=== PATIENT | male | born 2000 | race Caucasian/White ===

== ENCOUNTER → 2019-01-07 | Outpatient (CLI) | payer OTHER ==
--- NOTE | 2019-01-07 16:12 | MR ---
EXAMINATION TYPE: MR lumbar spine wo con DATE OF EXAM: 01/07/2019 COMPARISON: NONE HISTORY: Rt side pain into rt leg and foot per patient. Low back pain and right-sided sciatica. TECHNIQUE: Multiplanar, multisequence imaging of the lumbar spine is performed without IV contrast. FINDINGS: Sagittal images of the lumbar spine show vertebral body heights and alignment to appear sat isfactory. There is disc desiccation with mild to moderate disc space L5-S1 level otherwise the inter vertebral discs demonstrate normal heights and hydration. The conus medullaris is somewhat high in p osition ending mid T12 level without abnormal signal or clumping of lumbosacral nerve roots. The bon e marrow signal intensity is within normal limits. No significant spurring is seen. Axial images show the T12-L1, L1-L2, L2-L3, L3-L4, L4-L5 levels all to appear within normal limits. Axial images at the L5-S1 level shows central disc protrusion and the spinal canal is preserved as ar e some increased prominence of the anterior epidural fat. Bilateral neural foramina are patent. Paraspinal muscle bulk is maintained. No suspicious incidental retroperitoneal findings are seen. IMPRESSION: Mild degenerative changes L5-S1 level. No suspicious focal disc herniation to account for patient's right-sided radiculopathy type symptoms.
== END | disposition home or self-care (01) ==
LOC: RADMRIMAIN 15:04
PROVIDERS: ATTEND Family Medicine
DX: M54.5 Low back pain (principal)
CPT/HCPCS: 72148

== ENCOUNTER 2019-04-03 23:04 | Emergency (ER) | payer OTHER ==
[2019-04-03 23:13] VITALS: TEMP 97.3
[2019-04-04 00:05] LABS: Appearance,Urine Clear (Clear); Bacteria,Urine Rare /hpf; Bilirubin,Urine Negative (Negative); Blood,Urine Trace (Negative); Color,Urine Yellow; Glucose,Urine (UA) Negative (Negative); Ketones,Urine Negative (Negative); Leukocyte Esterase,Urine Negative (Negative); Mucus,Urine Rare /hpf; Nitrite,Urine Negative (Negative); Protein,Urine Negative (Negative); RBC,Urine 24 /hpf (0-5); Specific Gravity,Urine 1.027 (1.001-1.035); Squamous Epithelial Cell,Urine <1 /hpf (0-4); Urobilinogen,Urine <2.0 mg/dL (<2.0); WBC,Urine 2 /hpf (0-5)
[2019-04-04 00:06] LABS: Basophils # (A) 0.1 k/uL (0-0.2); Basophils % (A) 1 %; Eosinophils # (A) 0.2 k/uL (0-0.7); Eosinophils % (A) 3 %; HCT 43.9 % (39.0-53.0); HGB 15.1 gm/dL (13.0-17.5); Lymphocytes # (A) 2.5 k/uL (1.0-4.8); Lymphocytes % (A) 44 %; MCH 29.8 pg (25.0-35.0); MCHC 34.4 g/dL (31.0-37.0); MCV 86.6 fL (80.0-100.0); Monocytes # (A) 0.5 k/uL (0-1.0); Monocytes % (A) 9 %; Neutrophils # (A) 2.2 k/uL (1.3-7.7); Neutrophils % (A) 40 %; Platelet Count 288 k/uL (150-450); RBC 5.07 m/uL (4.30-5.90); RDW 13.1 % (11.5-15.5); WBC 5.6 k/uL (4.0-11.0)
--- NOTE | 2019-04-04 00:09 | ED ---
General Adult HPI - General Chief complaint: Syncope Stated complaint: Syncope Time Seen by Provider: 04/03/19 23:24 Source: patient Mode of arrival: ambulatory Limitations: no limitations - History of Present Illness Initial comments: Alfredo is a 19-year-old male with no packs medical history is brought to the ER today by his brother, brother states that he was at home and the patient was at work when he was called by the patient's coworkers and told that he was sitting in a chair at work and was difficult to wake up. Brother went to his work was able to wake the patient up he ambulated independently the car, brother reports he seems much more sleepy than usual. Patient was able to ambulate independently and in the emergency department and then into the restroom. Patient was found to be sleeping sitting up on the toilet and are emergency department and admitted that he had been using meth earlier in the day but he didn't want to say that in front of his brother. Patient states he just feels tired denies any acute complaints. - Related Data Allergies Allergy/AdvReac Type Severity Reaction Status Date / Time timex Allergy Unknown Uncoded 04/03/19 23:14 Review of Systems ROS Statement: Those systems with pertinent positive or pertinent negative responses have been documented in the HPI. ROS Other: All systems not noted in ROS Statement are negative. Past Medical History Past Medical History: No Reported History History of Any Multi-Drug Resistant Organisms: None Reported Past Surgical History: No Surgical Hx Reported Past Psychological History: No Psychological Hx Reported Smoking Status: Current every day smoker Past Alcohol Use History: None Reported Past Drug Use History: None Reported General Exam - General Exam Comments Initial Comments: Physical Exam GENERAL: Patient is well-developed and well-nourished. Patient is nontoxic and well- hydrated and is in no distress. HENT: Normocephalic, Atraumatic. EYES: PERRL, EOMI PULMONARY: Unlabored respirations. No audible rales rhonchi or wheezing was noted. CARDIOVASCULAR: There is a regular rate and rhythm without any murmurs gallops or rubs. ABDOMEN: Soft and nontender with normal bowel sounds. SKIN: Skin is clear with no lesions or rashes and otherwise unremarkable. : Deferred NEUROLOGIC: Patient is alert and oriented x3. Moving all extremities spontaneously MUSCULOSKELETAL: Normal extremities with adequate strength and full range of motion. No lower extremity swelling or edema. No calf tenderness. PSYCHIATRIC: Normal psychiatric evaluation. Limitations: no limitations Course Vital Signs 04/03/19 04/04/19 04/04/19 23:11 00:30 01:16 Temperature 97.3 F L Pulse Rate 57 L 56 L 58 L Respiratory 20 18 18 Rate Blood Pressure 117/75 113/64 108/64 O2 Sat by Pulse 100 98 100 Oximetry EKG Findings - EKG Comments: EKG Findings:: EKG was obtained due to triage complaint of syncope, EKG was obtained at 2346, EKG with a rate of 52 rhythm is narrow complex regular rhythm with P waves before each QRS consistent with sinus bradycardia. Normal axis, normal intervals, MT 150, care is 96, QTC is 416. There are no acute ST elevations or depressions there is no evidence of acute ischemia, infarction or arrhythmia. Medical Decision Making - Medical Decision Making The patient was seen and evaluated, history is obtained from the patient did admit and privately he been smoking meth recently but doesn't want his family to know. Patient cannot recall the last time he slept prior to today. Patient is sleeping but arouses is able to hold a conversation and walk around the department. Labs are unremarkable. Urine drug screen positive for methamphetamines and marijuana consistent with the history the patient reported. On reevaluation patient continues to sleep but wakes to voice was able to walk around the department with his mom, he was somewhat agitated by being woken up but is cooperative. Mom is comfortable taking him home at this time. I suspect the patient's sleepiness is secondary to lack of sleep secondary to met hamphetamine abuse. - Lab Data Result diagrams: 04/03/19 23:53 04/03/19 23:53 Lab Results 04/03/19 04/03/19 04/03/19 Range/Units 23:53 23:53 23:53 WBC 5.6 (4.0-11.0) k/uL RBC 5.07 (4.30-5.90) m/uL Hgb 15.1 (13.0-17.5) gm/dL Hct 43.9 (39.0-53.0) % MCV 86.6 (80.0-100.0) fL MCH 29.8 (25.0-35.0) pg MCHC 34.4 (31.0-37.0) g/dL RDW 13.1 (11.5-15.5) % Plt Count 288 (150-450) k/uL Neutrophils % 40 % Lymphocytes % 44 % Monocytes % 9 % Eosinophils % 3 % Basophils % 1 % Neutrophils # 2.2 (1.3-7.7) k/uL Lymphocytes # 2.5 (1.0-4.8) k/uL Monocytes # 0.5 (0-1.0) k/uL Eosinophils # 0.2 (0-0.7) k/uL Basophils # 0.1 (0-0.2) k/uL Sodium 142 (137-145) mmol/L Potassium 4.4 (3.5-5.1) mmol/L Chloride 109 H (98-107) mmol/L Carbon Dioxide 23 (22-30) mmol/L Anion Gap 10 mmol/L BUN 25 H (9-20) mg/dL Creatinine 0.85 (0.66-1.25) mg/dL Est GFR (CKD-EPI)AfAm >90 (>60 ml/min/1.73 sqM) Est GFR (CKD-EPI)NonAf >90 (>60 ml/min/1.73 sqM) Glucose 97 (74-99) mg/dL Calcium 9.8 (8.4-10.2) mg/dL Total Bilirubin 0.8 (0.2-1.3) mg/dL AST 33 (17-59) U/L ALT 34 (4-49) U/L Alkaline Phosphatase 81 (38-126) U/L Total Protein 7.1 (6.3-8.2) g/dL Albumin 4.4 (3.5-5.0) g/dL Urine Color Yellow Urine Appearance Clear (Clear) Urine pH 6.0 (5.0-8.0) Ur Specific [place] 1.027 (1.001-1.035) Urine Protein Negative (Negative) Urine Glucose (UA) Negative (Negative) Urine Ketones Negative (Negative) Urine Blood Trace H (Negative) Urine Nitrite Negative (Negative) Urine Bilirubin Negative (Negative) Urine Urobilinogen <2.0 (<2.0) mg/dL Ur Leukocyte Esterase Negative (Negative) Urine RBC 24 H (0-5) /hpf Urine WBC 2 (0-5) /hpf Ur Squamous Epith Cells <1 (0-4) /hpf Urine Bacteria Rare H (None) /hpf Urine Mucus Rare H (None) /hpf Urine Opiates Screen (NotDetected) Ur Oxycodone Screen (NotDetected) Urine Methadone Screen (NotDetected) Ur Propoxyphene Screen (NotDetected) Ur Barbiturates Screen (NotDetected) U Tricyclic Antidepress (NotDetected) Ur Phencyclidine Scrn (NotDetected) Ur Amphetamines Screen (NotDetected) U Methamphetamines Scrn (NotDetected) U Benzodiazepines Scrn (NotDetected) Urine Cocaine Screen (NotDetected) U Marijuana (THC) Screen (NotDetected) 04/03/19 Range/Units 23:53 WBC (4.0-11.0) k/uL RBC (4.30-5.90) m/uL Hgb (13.0-17.5) gm/dL Hct (39.0-53.0) % MCV (80.0-100.0) fL MCH (25.0-35.0) pg MCHC (31.0-37.0) g/dL RDW (11.5-15.5) % Plt Count (150-450) k/uL Neutrophils % % Lymphocytes % % Monocytes % % Eosinophils % % Basophils % % Neutrophils # (1.3-7.7) k/uL Lymphocytes # (1.0-4.8) k/uL Monocytes # (0-1.0) k/uL Eosinophils # (0-0.7) k/uL Basophils # (0-0.2) k/uL Sodium (137-145) mmol/L Potassium (3.5-5.1) mmol/L Chloride (98-107) mmol/L Carbon Dioxide (22-30) mmol/L Anion Gap mmol/L BUN (9-20) mg/dL Creatinine (0.66-1.25) mg/dL Est GFR (CKD-EPI)AfAm (>60 ml/min/1.73 sqM) Est GFR (CKD-EPI)NonAf (>60 ml/min/1.73 sqM) Glucose (74-99) mg/dL Calcium (8.4-10.2) mg/dL Total Bilirubin (0.2-1.3) mg/dL AST (17-59) U/L ALT (4-49) U/L Alkaline Phosphatase (38-126) U/L Total Protein (6.3-8.2) g/dL Albumin (3.5-5.0) g/dL Urine Color Urine Appearance (Clear) Urine pH (5.0-8.0) Ur Specific [place] (1.001-1.035) Urine Protein (Negative) Urine Glucose (UA) (Negative) Urine Ketones (Negative) Urine Blood (Negative) Urine Nitrite (Negative) Urine Bilirubin (Negative) Urine Urobilinogen (<2.0) mg/dL Ur Leukocyte Esterase (Negative) Urine RBC (0-5) /hpf Urine WBC (0-5) /hpf Ur Squamous Epith Cells (0-4) /hpf Urine Bacteria (None) /hpf Urine Mucus (None) /hpf Urine Opiates Screen Not Detected (NotDetected) Ur Oxycodone Screen Not Detected (NotDetected) Urine Methadone Screen Not Detected (NotDetected) Ur Propoxyphene Screen Not Detected (NotDetected) Ur Barbiturates Screen Not Detected (NotDetected) U Tricyclic Antidepress Not Detected (NotDetected) Ur Phencyclidine Scrn Not Detected (NotDetected) Ur Amphetamines Screen Detected H (NotDetected) U Methamphetamines Scrn Not Detected (NotDetected) U Benzodiazepines Scrn Not Detected (NotDetected) Urine Cocaine Screen Not Detected (NotDetected) U Marijuana (THC) Screen Detected H (NotDetected) Disposition Clinical Impression: Methamphetamine abuse, Fatigue Disposition: HOME SELF-CARE Condition: Stable Is patient prescribed a controlled substance at d/c from ED?: No Referrals: Rashard Arango Jr, DO [Primary Care Provider] - 1-2 days
[2019-04-04 00:11] LABS: ALT 34 U/L (4-49); AST 33 U/L (17-59); African American GFR (CKD) >90 (>60 ml/min/1.73 sqM); Albumin 4.4 g/dL (3.5-5.0); Alkaline Phosphatase 81 U/L (38-126); Anion Gap 10 mmol/L; Blood Urea Nitrogen 25 mg/dL (9-20); Calcium 9.8 mg/dL (8.4-10.2); Carbon Dioxide 23 mmol/L (22-30); Chloride 109 mmol/L (98-107); Glucose 97 mg/dL (74-99); Non-African American GFR(CKD) >90 (>60 ml/min/1.73 sqM); Potassium 4.4 mmol/L (3.5-5.1); Sodium 142 mmol/L (137-145); Total Bilirubin 0.8 mg/dL (0.2-1.3); Total Protein 7.1 g/dL (6.3-8.2)
[2019-04-04 00:15] LABS: Amphetamine Screen,Urine Detected (NotDetected); Barbiturate Screen,Urine Not Detected (NotDetected); Benzodiazepines Screen,Urine Not Detected (NotDetected); Cocaine Screen,Urine Not Detected (NotDetected); Methadone Screen, Urine Not Detected (NotDetected); Opiate Screen,Urine Not Detected (NotDetected); Oxycodone Screen, Urine Not Detected (NotDetected); Phencyclidine Screen,Urine Not Detected (NotDetected); Tricyclic Antidepressant,Urine Not Detected (NotDetected); Urn Cannabinoid Scrn Detected (NotDetected)
--- NOTE | 2019-04-04 00:16 | XR ---
EXAMINATION TYPE: XR chest 2V DATE OF EXAM: 04/04/2019 COMPARISON: NONE HISTORY: Syncope TECHNIQUE: 2 views FINDINGS: Heart and mediastinum are normal. Lungs are clear. Diaphragm is normal. Bony thorax appears normal. IMPRESSION: Normal chest.
[2019-04-04 00:30] VITALS: RESP 18
[2019-04-04 01:17] VITALS: BP 108/64; PULSE 58
== END 2019-04-04 02:08 | disposition home or self-care (01) ==
LOC: EC 23:04
DX: F15.10 Other stimulant abuse, uncomplicated (principal); R53.83 Other fatigue; R55 Syncope and collapse; F17.200 Nicotine dependence, unspecified, uncomplicated; Z88.8 Allergy status to other drugs, medicaments and biological substances
CPT/HCPCS: 36415; 71046; 80053; 80306; 81001; 85025; 93005; 99284

== ENCOUNTER 2024-07-12 16:30 | Emergency (ER) | payer MEDICAID, OTHER ==
--- NOTE | 2024-07-12 17:08 | ED ---
General Adult HPI - General Chief complaint: Extremity Problem,Nontraumatic Stated complaint: Swelling in knees, body pain Time Seen by Provider: 07/12/24 16:48 Source: patient, family, RN notes reviewed Mode of arrival: ambulatory Limitations: no limitations - History of Present Illness Initial comments: This is a 24-year-old male presenting with parents for knee and back pain x 2 days. Patient states symptoms began with right knee pain and swelling x 1 month that is progressed to left knee swelling as well as pain in his right neck radiating down to his right foot (6/10) for the past several days. Endorses receiving x-ray for his right knee with no abnormal findings. Patient states he has been favoring his left leg due to his right knee pain for the past month. Endorses use of ibuprofen with some pain relief. Denies fever, chills, neck stiffness, saddle paresthesia or urinary incontinence/retention. Onset/Timin -: days(s) Location: neck, back, left, right, lower extremity Severity scale (1-10): 6 Consistency: intermittent Improves with: immobilization Worsens with: movement Associated Symptoms: denies other symptoms Treatments Prior to Arrival: NSAID - Related Data Home Medications Medication Instructions Recorded Confirmed Ibuprofen [Motrin Ib] 800 mg PO QID PRN 07/12/24 07/12/24 Previous Rx's Medication Instructions Recorded Cyclobenzaprine [Flexeril] 10 mg PO Q8H PRN #15 tab 07/12/24 Ibuprofen [Motrin] 600 mg PO Q8HR PRN #30 tab 07/12/24 Lidocaine 4% Patch 1 patch TOPICAL DAILY PRN #10 patch 07/12/24 predniSONE 50 mg PO DAILY #5 tab 07/12/24 Allergies Allergy/AdvReac Type Severity Reaction Status Date / Time amoxicillin [From Trimox] Allergy Anaphylaxis Verified 07/12/24 17:52 Review of Systems ROS Statement: Those systems with pertinent positive or pertinent negative responses have been documented in the HPI. ROS Other: All systems not noted in ROS Statement are negative. Past Medical History Past Medical History: No Reported History History of Any Multi-Drug Resistant Organisms: None Reported Past Surgical History: No Surgical Hx Reported Past Psychological History: No Psychological Hx Reported Smoking Status: Vaper Past Alcohol Use History: None Reported Past Drug Use History: Marijuana General Exam Limitations: no limitations General appearance: alert, in no apparent distress Head exam: Present: atraumatic, normocephalic, normal inspection Eye exam: Present: normal appearance, PERRL, EOMI. Absent: scleral icterus, conjunctival injection, periorbital swelling ENT exam: Present: normal exam, mucous membranes moist Neck exam: Present: normal inspection. Absent: tenderness, meningismus, lymphadenopathy Respiratory exam: Present: normal lung sounds bilaterally. Absent: respiratory distress, wheezes, rales, rhonchi, stridor Cardiovascular Exam: Present: regular rate, normal rhythm, normal heart sounds. Absent: systolic murmur, diastolic murmur, rubs, gallop, clicks GI/Abdominal exam: Present: soft, normal bowel sounds. Absent: distended, tenderness, guarding, rebound, rigid Extremities exam: Present: full ROM, tenderness (Positive right medial knee tenderness. Negative Liban's, varus/valgus, Darvin's), normal capillary refill, other (Bilateral lower extremity distal neurovascular and motor function intact. DTR +2 bilaterally). Absent: pedal edema, joint swelling, calf tenderness Back exam: Present: tenderness, muscle spasm (Positive right trapezius and scapular spine spasm and tenderness), paraspinal tenderness (Positive right lumbosacral muscle spasm and tenderness) Neurological exam: Present: alert, oriented X3, CN II-XII intact Psychiatric exam: Present: normal affect, normal mood Skin exam: Present: warm, dry, intact, normal color. Absent: rash Course Vital Signs 07/12/24 07/12/24 16:35 19:15 Temperature 98.1 F 99.0 F Pulse Rate 93 81 Respiratory 22 16 Rate Blood Pressure 127/80 113/68 O2 Sat by Pulse 99 98 Oximetry Medical Decision Making - Medical Decision Making Was pt. sent in by a medical professional or institution (, PA, MEDICAL LEGAL INVESTIGATOR, urgent care, hospital, or [facility]...) When possible be specific @ -No Did you speak to anyone other than the patient for history (EMS, parent, family, police, friend...)? What history was obtained from this source @ -No Did you review nursing and triage notes (agree or disagree)? Why? @ -I reviewed and agree with nursing and triage notes Were old charts reviewed (outside hosp., previous admission, EMS record, old EKG, old radiological studies, urgent care reports/EKG's, [facility] records)? Report findings @ -No old charts were reviewed Differential Diagnosis (chest pain, altered mental status, abdominal pain women, abdominal pain men, vaginal bleeding, weakness, fever, dyspnea, syncope, headache, dizziness, GI bleed, back pain, seizure, CVA, palpatations, mental health, musculoskeletal)? @ -Differential Musculoskeletal Muscular strain, contusion, ligament sprain, fracture, arthritis, septic arthritis, bursitis, cellulitis, muscle spasm, nerve compression, DVT, arterial occlusion, herpes zoster, electrolyte abnormality, tumor.... This is not meant to be in all inclusive list EKG interpreted by me (3pts min.). @ -Not done X-rays interpreted by me (1pt min.). @ -None done CT interpreted by me (1pt min.). @ -None done U/S interpreted by me (1pt. min.). @ -None done What testing was considered but not performed or refused? (CT, X-rays, U/S, labs)? Why? @ -None What meds were considered but not given or refused? Why? @ -None Did you discuss the management of the patient with other professionals (professionals i.e. , PA, MEDICAL LEGAL INVESTIGATOR, lab, RT, psych nurse, manager social, product marketing engineer, teacher, pharmaceutical officer, immigration case manager)? Give summary @ -No Was smoking cessation discussed for >3mins.? @ -No Was critical care preformed (if so, how long)? @ -No Were there social determinants of health that impacted care today? How? (Homelessness, low income, unemployed, alcoholism, drug addiction, transportation, low edu. Level, literacy, decrease access to med. care, long-term, rehab)? @ -No Was there de-escalation of care discussed even if they declined (Discuss DNR or withdrawal of care, Hospice)? DNR status @ -No What co-morbidities impacted this encounter? (DM, HTN, Smoking, COPD, CAD, Cancer, CVA, ARF, Chemo, Hep., AIDS, mental health diagnosis, sleep apnea, morbid obesity)? @ -None Was patient admitted / discharged? Hospital course, mention meds given and route, prescriptions, significant lab abnormalities, going to OR and other pertinent info. @ -Patient provided IM Toradol, Solu-Medrol, Norflex and lidocaine patch with significant relief noted by patient. Motrin 600, prednisone, Flexeril and lid ocaine patch sent to patient's pharmacy. Advised warm compress, gentle massage and gentle stretching for affected muscle groups. Advised avoid lower extremity favoritism to prevent further recurrence of pain/muscle spasms. Follow-up with PCP/orthopedics for any ongoing or worsening symptoms. Discussed patient with Dr. Fairchild.. Undiagnosed new problem with uncertain prognosis? @ -No Drug Therapy requiring intensive monitoring for toxicity (Heparin, Nitro, Insulin, Cardizem)? @ -No Were any procedures done? @ -No Diagnosis/symptom? @ -Sciatica, muscle spasm Acute, or Chronic, or Acute on Chronic? @ -Acute Uncomplicated (without systemic symptoms) or Complicated (systemic symptoms)? @ -Uncomplicated Side effects of treatment? @ -No Exacerbation, Progression, or Severe Exacerbation? @ -No Poses a threat to life or bodily function? How? (Chest pain, [place], [place], pneumonia, PE, COPD, DKA, ARF, appy, cholecystitis, CVA, Diverticulitis, Homicidal, Suicidal, threat to staff... and all critical care pts) @ -No Disposition Clinical Impression: Sciatica, Spasm of right trapezius muscle Disposition: HOME SELF-CARE Condition: Good Instructions (If sedation given, give patient instructions): Sciatica (ED), Lumbar Radiculopathy (ED), Lower Back Exercises (ED) Additional Instructions: Heat to affected areas for 10 minutes up to 4 times daily. Gentle stretching massage of affected areas. Follow-up with PCP/orthopedics for ongoing samir gement of neck/back pain. Prescriptions: Cyclobenzaprine [Flexeril] 10 mg PO Q8H PRN #15 tab PRN Reason: Spasms Lidocaine 4% Patch 1 patch TOPICAL DAILY PRN #10 patch PRN Reason: Pain Ibuprofen [Motrin] 600 mg PO Q8HR PRN #30 tab PRN Reason: Pain predniSONE 50 mg PO DAILY #5 tab Is patient prescribed a controlled substance at d/c from ED?: No Referrals: None,Stated [Primary Care Provider] - 1-2 days [facility] [Provider Group] - 1-2 days [facility] [Provider Group] - 1-2 days Nico Nuñez MD [STAFF PHYSICIAN] - 1-2 days Time of Disposition: 18:46
[2024-07-12] MEDS: ORPHENADRINE 30 MG/ML 2 ML VIAL IM STA (17:44)
[2024-07-12] MEDS: KETOROLAC 15 MG/ML 1 ML VIAL IM STA (17:47)
[2024-07-12] MEDS: methylPREDNISolone SOD SUCCI 125 MG/2 ML VIAL IM ONE (17:50)
[2024-07-12] MEDS: LIDOCAINE 4% PATCH TOPICAL ONE (17:53)
[2024-07-12 19:16] VITALS: BP 113/68; PULSE 81; RESP 16; TEMP 99
== END 2024-07-12 19:17 | disposition home or self-care (01) ==
LOC: EC 16:30
DX: M54.31 Sciatica, right side (principal); M62.838 Other muscle spasm; F17.290 Nicotine dependence, other tobacco product, uncomplicated; Z88.0 Allergy status to penicillin
CPT/HCPCS: 99283; 96372 ×3; J2360; J1885; J2919

== ENCOUNTER 2024-09-21 17:16 | Emergency (ER) | payer MEDICAID ==
--- NOTE | 2024-09-21 17:54 | ED ---
General Adult HPI - General Source: patient, RN notes reviewed Mode of arrival: ambulatory Limitations: no limitations <Geovanna Lang - Last Filed: 09/21/24 17:52> <Aisha Calvert - Last Filed: 09/21/24 20:59> - General Chief complaint: Extremity Problem,Nontraumatic Stated complaint: B/L Leg Pain + Swelling Time Seen by Provider: 09/21/24 17:30 - History of Present Illness Initial comments: 24-year-old male presenting to the emergency department with complaints of bilateral lower extremity swelling and pain over the past 4 months. Patient was evaluated by his primary care provider in urgent care multiple times restates that he was provided with steroids. Has been taking ibuprofen with minimal relief. Denies chest pain or difficulty in breathing. (Geovanna Lang) - Related Data Home Medications Medication Instructions Recorded Confirmed Ibuprofen [Motrin Ib] 800 mg PO QID PRN 07/12/24 07/12/24 Previous Rx's Medication Instructions Recorded Cyclobenzaprine [Flexeril] 10 mg PO Q8H PRN #15 tab 07/12/24 Ibuprofen [Motrin] 600 mg PO Q8HR PRN #30 tab 07/12/24 Lidocaine 4% Patch 1 patch TOPICAL DAILY PRN #10 patch 07/12/24 predniSONE 50 mg PO DAILY #5 tab 07/12/24 Allergies Allergy/AdvReac Type Severity Reaction Status Date / Time amoxicillin [From Trimox] Allergy Anaphylaxis Verified 09/21/24 17:51 Review of Systems ROS Other: All systems not noted in ROS Statement are negative. <Geovanna Lang - Last Filed: 09/21/24 17:52> ROS Other: All systems not noted in ROS Statement are negative. <Aisha Calvert - Last Filed: 09/21/24 20:59> ROS Statement: Those systems with pertinent positive or pertinent negative responses have been documented in the HPI. Past Medical History Past Medical History: No Reported History History of Any Multi-Drug Resistant Organisms: None Reported Past Surgical History: No Surgical Hx Reported Past Psychological History: No Psychological Hx Reported Smoking Status: Vaper Past Alcohol Use History: None Reported Past Drug Use History: Marijuana <Geovanna Lang - Last Filed: 09/21/24 17:52> General Exam Limitations: no limitations <Geovanna Lang - Last Filed: 09/21/24 17:52> - General Exam Comments Initial Comments: Visual Physical Exam Vital signs reviewed General: Well-appearing, nontoxic, no acute distress. Head: Normocephalic, atraumatic Eyes: PERRLA, EOMI ENT: Airway patent Chest: Nonlabored breathing Skin: No visual rash, normal skin tone Neuro: Alert and oriented 3 Musculoskeletal: No gross abnormalities (Geovanna Lang) Course Vital Signs 09/21/24 17:48 Temperature 98.6 F Pulse Rate 67 Respiratory 16 Rate Blood Pressure 158/91 O2 Sat by Pulse 100 Oximetry Medical Decision Making <Geovanna Lang - Last Filed: 09/21/24 17:52> - Lab Data Result diagrams: 09/21/24 19:02 09/21/24 19:02 <Aisha Calvert - Last Filed: 09/21/24 20:59> - Medical Decision Making I completed the quick note portion of this chart signed Geovanna Lang PA-C (Geovanna Lang) - Lab Data Lab Results 09/21/24 09/21/24 09/21/24 Range/Units 19:02 19:02 19:02 WBC 10.82 H (4.50-10.00) 10*3/uL RBC 4.55 (4.40-5.60) 10*6/uL Hgb 12.4 L (13.0-17.0) g/dL Hct 38.9 L (39.6-50.0) % MCV 85.5 (80.0-97.0) fL MCH 27.3 (27.0-32.0) pg MCHC 31.9 L (32.0-37.0) g/dL Plt Count 476 H (140-440) 10*3/uL MPV 8.3 L (9.5-12.2) fL Immature Gran % (Auto) 0.3 % Neutrophils % 57.6 % Lymphocytes % 31.0 % Monocytes % 10.2 % Eosinophils % 0.3 % Basophils % 0.6 % Immature Gran # 0.03 (0.00-0.04) 10*3/uL Neutrophils # 6.25 (1.80-7.70) 10*3/uL Lymphocytes # 3.35 (0.90-5.00) 10*3/uL Monocytes # 1.10 H (0.20-1.00) 10*3/uL Eosinophils # 0.03 L (0.04-0.35) 10*3/uL Basophils # 0.06 (0.00-0.10) 10*3/uL Sodium 139 (137-145) mmol/L Potassium 4.1 (3.5-5.1) mmol/L Chloride 99 (98-107) mmol/L Carbon Dioxide 31 H (22-30) mmol/L Anion Gap 9 mmol/L BUN 16 (9-20) mg/dL Creatinine 0.78 (0.66-1.25) mg/dL Est GFR (CKD-EPI)AfAm >90 (>60 ml/min/1.73 sqM) Est GFR (CKD-EPI)NonAf >90 (>60 ml/min/1.73 sqM) Glucose 94 (74-99) mg/dL Uric Acid 6.4 (3.5-8.5) mg/dL Calcium 10.1 (8.4-10.2) mg/dL Magnesium 2.0 (1.6-2.3) mg/dL Total Bilirubin 1.3 (0.2-1.3) mg/dL AST 17 (17-59) U/L ALT 14 (4-49) U/L Alkaline Phosphatase 97 (38-126) U/L C-Reactive Protein (<1.0) mg/dL Total Protein 7.3 (6.3-8.2) g/dL Albumin 4.4 (3.5-5.0) g/dL 09/21/ Range/Units 19:02 WBC (4.50-10.00) 10*3/uL RBC (4.40-5.60) 10*6/uL Hgb (13.0-17.0) g/dL Hct (39.6-50.0) % MCV (80.0-97.0) fL MCH (27.0-32.0) pg MCHC (32.0-37.0) g/dL Plt Count (140-440) 10*3/uL MPV (9.5-12.2) fL Immature Gran % (Auto) % Neutrophils % % Lymphocytes % % Monocytes % % Eosinophils % % Basophils % % Immature Gran # (0.00-0.04) 10*3/uL Neutrophils # (1.80-7.70) 10*3/uL Lymphocytes # (0.90-5.00) 10*3/uL Monocytes # (0.20-1.00) 10*3/uL Eosinophils # (0.04-0.35) 10*3/uL Basophils # (0.00-0.10) 10*3/uL Sodium (137-145) mmol/L Potassium (3.5-5.1) mmol/L Chloride (98-107) mmol/L Carbon Dioxide (22-30) mmol/L Anion Gap mmol/L BUN (9-20) mg/dL Creatinine (0.66-1.25) mg/dL Est GFR (CKD-EPI)AfAm (>60 ml/min/1.73 sqM) Est GFR (CKD-EPI)NonAf (>60 ml/min/1.73 sqM) Glucose (74-99) mg/dL Uric Acid (3.5-8.5) mg/dL Calcium (8.4-10.2) mg/dL Magnesium (1.6-2.3) mg/dL Total Bilirubin (0.2-1.3) mg/dL AST (17-59) U/L ALT (4-49) U/L Alkaline Phosphatase (38-126) U/L C-Reactive Protein 5.1 H (<1.0) mg/dL Total Protein (6.3-8.2) g/dL Albumin (3.5-5.0) g/dL Disposition <Geovanna Lang - Last Filed: 09/21/24 17:52> Is patient prescribed a controlled substance at d/c from ED?: No Time of Disposition: 20:59 <Aisha Calvert - Last Filed: 09/21/24 20:59> Clinical Impression: Joint swelling Disposition: HOME SELF-CARE Condition: Stable Instructions (If sedation given, give patient instructions): Arthralgia (ED) Additional Instructions: Please continue taking the medications that you are prescribed. I recommend that you follow-up with rheumatology for further evaluation of your symptoms. Return to the emergency department for any new or worsening symptoms Referrals: Lam Anthony DO [Primary Care Provider] - 1-2 days Liana Parekh MD [STAFF PHYSICIAN] - 1-2 days
[2024-09-21 19:15] LABS: Basophils # (A) 0.06 10*3/uL (0.00-0.10); Basophils % (A) 0.6 %; Eosinophils # (A) 0.03 10*3/uL (0.04-0.35); Eosinophils % (A) 0.3 %; HCT 38.9 % (39.6-50.0); HGB 12.4 g/dL (13.0-17.0); Lymphocytes # (A) 3.35 10*3/uL (0.90-5.00); MCH 27.3 pg (27.0-32.0); MCHC 31.9 g/dL (32.0-37.0); MCV 85.5 fL (80.0-97.0); Mean Platelet Volume 8.3 fL (9.5-12.2); Monocytes % (A) 10.2 %; Neutrophils # (A) 6.25 10*3/uL (1.80-7.70); Neutrophils % (A) 57.6 %; Platelet Count 476 10*3/uL (140-440); RBC 4.55 10*6/uL (4.40-5.60); RDW 14.9 % (11.5-14.5); WBC 10.82 10*3/uL (4.50-10.00)
[2024-09-21 19:40] LABS: ALT 14 U/L (4-49); AST 17 U/L (17-59); African American GFR (CKD) >90 (>60 ml/min/1.73 sqM); Albumin 4.4 g/dL (3.5-5.0); Alkaline Phosphatase 97 U/L (38-126); Anion Gap 9 mmol/L; Blood Urea Nitrogen 16 mg/dL (9-20); Calcium 10.1 mg/dL (8.4-10.2); Carbon Dioxide 31 mmol/L (22-30); Chloride 99 mmol/L (98-107); Glucose 94 mg/dL (74-99); Non-African American GFR(CKD) >90 (>60 ml/min/1.73 sqM); Potassium 4.1 mmol/L (3.5-5.1); Sodium 139 mmol/L (137-145); Total Bilirubin 1.3 mg/dL (0.2-1.3); Total Protein 7.3 g/dL (6.3-8.2)
--- NOTE | 2024-09-21 20:16 | US ---
EXAMINATION TYPE: US venous doppler duplex LE BI DATE OF EXAM: 09/21/2024 7:25 PM COMPARISON: NONE CLINICAL INDICATION: Male, 24 years old with history of swelling, pain; patient states knee pain and "swelling" per patient. no hx dvt. not on thinners, Pain TECHNIQUE: The lower extremity deep venous system is examined utilizing real time linear array sonog kristian with graded compression, color doppler sonography, and spectral doppler. SIDE PERFORMED: Bilateral FINDINGS: VESSELS IMAGED: Common Femoral Vein Deep Femoral Vein Greater Saphenous Vein * Femoral Vein Popliteal Vein Small Saphenous Vein * Proximal Calf Veins (* superficial vessels) Right Leg: Negative for DVT, Color Doppler imaging shows patency of the vessels. Spectral waveforms are within normal limits. Left Leg: Negative for DVT, Color Doppler imaging shows patency of the vessels. Spectral waveforms a re within normal limits. IMPRESSION: 1. Bilateral lower extremity ultrasound negative for deep venous thrombosis. [facility], , 09/21/2024 8:13 PM
[2024-09-21 21:12] VITALS: BP 134/77; PULSE 57; RESP 18; TEMP 97.9
== END 2024-09-21 21:13 | disposition home or self-care (01) ==
LOC: EC 17:16
DX: M25.462 Effusion, left knee (principal); M25.461 Effusion, right knee; F17.290 Nicotine dependence, other tobacco product, uncomplicated; Z88.0 Allergy status to penicillin
CPT/HCPCS: 36415; 80053; 83735; 84550; 85025; 85652; 86038; 86140; 93970; 99284